=== PATIENT | female | born 1975 | race Caucasian/White ===

== ENCOUNTER 2019-12-05 08:43 | Outpatient (CLI) | payer OTHER, SELFPAY ==
--- NOTE | ~2019-12-05 | MM_ITS ---
EXAMINATION: MM screening shreyas BI w carlee HISTORY: Screening mammogram TECHNIQUE: Craniocaudal and mediolateral oblique 3-D tomosynthesis images were obtained and synthetic 2-D images were generated. CAD analysis was submitted and interpreted. COMPARISON: 11/04/2018 diagnostic left digital mammogram and complete left breast ultrasound 10/14/2018, 10/10/2017, 03/17/2016 bilateral digital screening mammogram examinations BREAST PARENCHYMAL COMPOSITION: The breasts are heterogeneously dense, which may obscure small masses . FINDINGS: Stable mild fibroglandular asymmetry. There is no evidence of suspicious mass, calcificatio n, or architectural distortion to suggest malignancy in either breast. There has been no suspicious i nterval change. IMPRESSION: 1. No mammographic evidence of malignancy. 2. Recommend routine screening mammography in one year. BI-RADS Category 2: Benign finding(s). Reviewed, dictated and finalized at location A.
== END 2019-12-05 08:44 | disposition home or self-care (01) ==
LOC: ANHIMG 08:47
PROVIDERS: PCP Family Medicine; Visit Provider Student in an Organized Health Care Education/Training Program
DX: Z12.31 Encounter for screening mammogram for malignant neoplasm of breast (principal)
CPT/HCPCS: 77063; 77067

== ENCOUNTER 2020-12-17 07:40 | Outpatient (CLI) | payer OTHER, SELFPAY ==
--- NOTE | ~2020-12-17 | MM_ITS ---
EXAMINATION: MM screening shreyas BI w carlee HISTORY: Screening TECHNIQUE: Craniocaudal and mediolateral oblique 3-D tomosynthesis images were obtained and synthetic 2-D images were generated. CAD analysis was submitted and interpreted. COMPARISON: Comparison to multiple prior studies sequentially, with oldest reviewed study dated the 03/17/2016. BREAST PARENCHYMAL COMPOSITION: The breasts are heterogeneously dense, which may obscure small masses . FINDINGS: There are developing asymmetries in the left breast which are obscured by fibroglandular ti ssue. The right breast is stable without evidence for malignancy. IMPRESSION: 1. Developing left breast asymmetries. 2. Additional mammographic views and possible breast ultrasound are recommended. BI-RADS Category 0: Incomplete: Needs additional imaging evaluation. Reviewed, dictated and finalized at location A. IMPRESSION: 1. Developing left breast asymmetries. 2. Additional mammographic views and possible breast ultrasound are recommended . BI-RADS Category 0: Incomplete: Needs additional imaging evaluation.
== END 2020-12-17 07:41 | disposition home or self-care (01) ==
LOC: ANHIMG 07:41
PROVIDERS: PCP Family Medicine; Visit Provider Student in an Organized Health Care Education/Training Program
DX: Z12.31 Encounter for screening mammogram for malignant neoplasm of breast (principal); R92.8 Other abnormal and inconclusive findings on diagnostic imaging of breast
CPT/HCPCS: 77063; 77067

== ENCOUNTER 2021-01-05 13:38 | Outpatient (CLI) | payer OTHER, SELFPAY ==
--- NOTE | ~2021-01-05 | MMUS_ITS ---
EXAMINATION: MM diagnostic shreyas LT w carlee, US breast LT complete HISTORY: Developing left breast asymmetries reported on 12/17/2020 screening mammogram examination TECHNIQUE: Additional 3-D tomosynthesis images of the left breast were performed and synthetic 2-D im ages were generated. CAD analysis was submitted and interpreted. High resolution complete left breast ultrasound was performed. COMPARISON: 06/2020 bilateral digital screening mammogram FINDINGS: MAMMOGRAPHIC FINDINGS: There is heterogeneously dense breast tissue which may obscure small masses. No suspicious mass, arch itectural distortion, malignant calcification, skin thickening or retraction of the left breast is de tected. ULTRASOUND: 12:00 6 cm from nipple: 7.5 x 6.7 x 8.2 mm sonolucency with through transmission posterior enhancemen t consistent with simple cyst 3:00 6 cm from nipple: Parallel circumscribed 5.3 x 2.9 x 4.8 mm sonolucency with through transmissio n and posterior enhancement, consistent with simple cyst No suspicious mass or shadowing is detected. IMPRESSION: 1. 2 benign left breast cysts. No mammographic evidence of malignancy 2. Routine mammographic screening is recommended. BI-RADS Category 2: Benign finding(s). Reviewed, dictated and finalized at location A. IMPRESSION: 1. 2 benign left breast cysts. No mammographic evidence of malignancy 2. Routine mammographic screening is recommended. BI-RADS Category 2: Benign finding(s).
== END 2021-01-05 13:39 | disposition home or self-care (01) ==
LOC: ANHIMG 13:40
PROVIDERS: PCP Family Medicine; Visit Provider Student in an Organized Health Care Education/Training Program
DX: R92.8 Other abnormal and inconclusive findings on diagnostic imaging of breast (principal)
CPT/HCPCS: 76641; 77061; 77065; G0279

== ENCOUNTER 2022-02-17 09:09 | Outpatient (CLI) | payer OTHER, SELFPAY ==
--- NOTE | ~2022-02-17 | MM_ITS ---
EXAMINATION: MM screening shreyas BI w carlee HISTORY: Screening TECHNIQUE: Craniocaudal and mediolateral oblique 3-D tomosynthesis images were obtained and synthetic 2-D images were generated. CAD analysis was submitted and interpreted. COMPARISON: Comparison to multiple prior studies sequentially, with oldest reviewed study dated 10/10. BREAST PARENCHYMAL COMPOSITION: The breasts are heterogeneously dense, which may obscure small masses . FINDINGS: There is no evidence of suspicious mass, calcification, or architectural distortion to sugg est malignancy in either breast. There has been no suspicious interval change. IMPRESSION: 1. No mammographic evidence of malignancy. 2. Recommend routine screening mammography in one year. BI-RADS Category 1: Negative Reviewed, dictated and finalized at location A.
== END 2022-02-17 09:10 | disposition home or self-care (01) ==
LOC: ANHIMG 09:10
PROVIDERS: PCP Family Medicine; Visit Provider Student in an Organized Health Care Education/Training Program
DX: Z12.31 Encounter for screening mammogram for malignant neoplasm of breast (principal)
CPT/HCPCS: 77063; 77067

== ENCOUNTER 2023-06-11 14:56 | Outpatient (CLI) | payer OTHER, SELFPAY ==
--- NOTE | ~2023-06-11 | MM_ITS ---
EXAMINATION: MM screening shreyas BI w carlee HISTORY: Screening TECHNIQUE: Craniocaudal and mediolateral oblique 3-D tomosynthesis images were obtained and synthetic 2-D images were generated. CAD analysis was submitted and interpreted. COMPARISON: Comparison to multiple prior studies sequentially, with oldest reviewed study dated 04/2018. BREAST PARENCHYMAL COMPOSITION: The breasts are heterogeneously dense, which may obscure small masses . FINDINGS: There is no evidence of suspicious mass, calcification, or architectural distortion to sugg est malignancy in either breast. There has been no suspicious interval change. IMPRESSION: 1. No mammographic evidence of malignancy. 2. Recommend routine screening mammography in one year. BI-RADS Category 1: Negative Reviewed, dictated and finalized at location A. MANAGER
== END 2023-06-11 14:57 | disposition home or self-care (01) ==
LOC: ANHIMG 15:01
PROVIDERS: PCP Internal Medicine; Visit Provider Registered Nurse
DX: Z12.31 Encounter for screening mammogram for malignant neoplasm of breast (principal)
CPT/HCPCS: 77063; 77067

== ENCOUNTER 2024-07-31 15:41 | Outpatient (CLI) | payer BC, OTHER, SELFPAY ==
--- NOTE | ~2024-07-31 | MM_ITS ---
EXAMINATION: MM screening shreyas BI w carlee HISTORY: Screening TECHNIQUE: Craniocaudal and mediolateral oblique 3-D tomosynthesis images were obtained and synthetic 2-D images were generated. CAD analysis was submitted and interpreted. COMPARISON: Comparison to multiple prior studies sequentially, with oldest reviewed study dated 11/04. BREAST PARENCHYMAL COMPOSITION: Dense: The breasts are heterogeneously dense, which may obscure small masses FINDINGS: There is no evidence of suspicious mass, calcification, or architectural distortion to sugg est malignancy in either breast. There has been no suspicious interval change. IMPRESSION: 1. No mammographic evidence of malignancy. 2. Recommend routine screening mammography in one year. BI-RADS Category 1: Negative Reviewed, dictated and finalized at location B.
--- OUTSIDE RECORDS SUMMARY | 2024-07-31 15:44 | XMS_ITS | Clinical Summary ---
Author Organization [facility] [employer] Address [address] [place] [address] Care Team Providers Care Dairy Farm Supervisor Name Role Phone Fabio Sifuentes MD Primary Care Provider [phone] Darlene Beck MD Unavailable [phone] Source Comments [facility],non-owned Affiliates and Associated Physician Practices is amultiple site organization consisting of ambulatory clinics and hospital sitesin [place], [place], [place] and [place]. This disclosure is being madepursuant to the Care Everywhere program and may not contain all information available regarding this patient. Last updated 18.[facility] Allergies No known active allergies Medications * Be aware that medications may not be up to date on this document. Alwaysverify current medications with the patient. escitalopram (LEXAPRO) 10 MG tablet Take 10 mg by mouth once daily Active Social History Tobacco Use Types Packs/Day Years Used Date Smoking Tobacco: Never Alcohol Use Standard Drinks/Week Comments Not Asked 0 (1 standard drink = 0.6 oz pur e alcohol) Comments No Sex and Gender Information Value Date Recorded Sex Assigned at Not on file Legal Sex Female 2:47 PM CDT Gender Identity Not on file Sexual Orientation Not on file Last Filed Vital Signs Vital Sign Reading Time Taken Comments Blood Pressure 116/72 12/24/2015 3:37 PM CDT Pulse 72 12/24/2015 3:37 PM CDT Temperature 36.9 C (98.5 F) 12/24/2015 3:37 PM CDT Respiratory Rate 18 12/24/2015 3:37 PM CDT Oxygen Saturation 97% 12/24/2015 3:37 PM CDT Inhaled Oxygen Concentration - - Weight 76.7 kg (169 lb) 12/24/2015 3:37 PM CDT Height - - Body Mass Index - - Plan of Treatment Health Maintenance Due Date Last Done Comments COLOGUARD (AGES 45-75) - COL ON CA SCREENING 1975 COLON MONITORING 1975 COLONOSCOPY - COLON CA SCREENING 1975 CT COLONOGRAPHY - COLON CA SCREENING 1975 Colorectal Cancer Screening 1975 FIT - COLON CA SCREENING 1975 FLEX SIG - COLON CA SCREENING 1975 LIPID TESTING 1975 MAMMOGRAM 1975 PAP SMEAR 1975 HIV SCREENING 12/21/1990 HEPATITIS C SCREENING 12/17/1993 DTAP/TDAP/TD VACCINES (1 - Tdap) 12/21/1994 HEPATITIS B VACCINE (1 of 3 - 19+ 3-dose series) 12/21/1994 COVID-19 VACCINE (1 - 2023-2 5 season) 2023 DEPRESSION SCREENING 04/16/2024 INFLUENZA VACCINE (Season Ended) 2024 ZOSTER VACCINE (1 of 2) 12/21/2025 HIB VACCINE Aged Out No longer eligi ble based on patient's age to complete this topic HPV VACCINE Aged Out No longer eligi ble based on patient's age to complete this topic MENINGOCOCCAL (Group B) VACC INE SHARED DECISION-MAKING Aged Out No longer eligibl e based on patient's age to complete this topic MENINGOCOCCAL GROUPS A/C/Y/W VACCINE Aged Out No longer eligible b ased on patient's age to complete this topic PNEUMOCOCCAL VACCINE Aged Out No long er eligible based on patient's age to complete this topic Insurance [facility] Care Teams Dairy Farm Supervisor Relationship Specialty Start Date End Date Fabio Sifuentes MD [address] [place] [phone] PCP - General Family Medicine 12/24/15 Darlene Beck MD [address] [place] [phone] 12/24/15
--- OUTSIDE RECORDS SUMMARY | 2024-07-31 15:44 | XMS_ITS | Encounter Summary ---
Author Organization [facility] Address [address] [place] [id number] Care Team Providers Care Tool Builder Name Role Phone Karoline Benoit MD Primary Care Provider [phone] Encounter Details Date Type Department Care Team (Late st Contact Info) Description 04/06/2023 Exinda Message Enc [facility] Family & Internal Medicine [address] [phone] [facility] Social History Tobacco Use Types Packs/Day Years Used Date Smoking Tobacco: Some Days Cigarettes Smokeless Tobacco: Never Comments:Counseled by Dr. Marisol perdomo. PHQ-2 Answer Date Recorded Patient Health Questionnaire-2 Score 0 02/02/2023 Comments No Sex and Gender Information Value Date Recorded Sex Assigned at Not on file Legal Sex Female 7:16 AM CDT Gender Identity Not on file Sexual Orientation Not on file documented as of this encounter Plan of Treatment Upcoming Encounters Date Type Department Care Team (Late st Contact Info) Description 02/16/2025 8:00 AM RAYON WINDER Office Visit [facility] Medical Group Multispecialty Care - [address] [address] [address] [place] [address] Karoline Benoit MD [address] [place] [phone] documented as of this encounter Visit Diagnoses Not on filedocumented in this encounter Additional Health Concerns Infection Onset Date Last Indicated Resolved Time COVID-19 Rule Out 12/28/2023 12/28/2023 12/28/2023 2:55 PM CDT Assessment Noted Time PHQ-9 Depression Total Score: 0 02/03/20 8:01 AM CDT documented as of this encounter Care Teams Tool Builder Relationship Specialty Start Date End Date Karoline Benoit MD [address] [id number] PCP - General INTERNAL MEDICINE 02/02/23 documented as of this encounter
--- OUTSIDE RECORDS SUMMARY | 2024-07-31 15:44 | XMS_ITS | Clinical Summary ---
Author Organization [facility] Address [address] [place] [id number] Care Team Providers Care Assistant Family Teacher Name Role Phone Karoline Benoit MD Primary Care Provider [phone] Allergies No known active allergies Medications vitamin D3, cholecalciferol, 10 mcg tablet Take 5 tablets (50 mcg total) by mouth daily. Active Cyanocobalamin (VITAMIN B12 OR) Take 5,000 mcg by mouth. Active biotin [address] MCG tablet Take 0.5 tablets (5,000 mcg total) by mouth daily. Active Multiple Vitamins-Calcium (ONE-A-DAY WOMENS FORMULA OR) Active metroNIDAZOLE (METROGEL) 1 % gelIndications:R osacea Apply topically daily. 55 g 2 4 Active omeprazole (PRILOSEC) 40 MG capsuleIndicatio ns:Gastroesophag eal reflux disease without esophagitis Take 1 capsule (40 mg total) by mouth daily. 90 capsule 3 4 Active Active Problems Problem Noted Date Diagnosed Date Globus sensation 05/15/2023 Gastroesophageal reflux dise ase, unspecified whether esophagitis present 05/15/2023 Family hx of colon cancer 05/15/2023 Family history of colonic polyps 05/15/2023 Resolved Problems Problem Noted Date Diagnosed Date Resolved Date Screening for colon cancer 05/15/2023 0 05/21/2023 Immunizations Immunization Administration Dates Next Due Influenza Adult (Generic) 01/30/2023 PFIZER COVID-19 (ORIGINAL FO RMULATION, PURPLE CAP) mRNA, LNP-S, PF, 30 MCG/0.3 ML DOSE 08/20/2020,07/23/2020 Tdap (Adacel) 02/15/2024 Family History Medical History Relation Comments Colon polyps Brother Diabetes Father COPD Maternal Grandmother Diabetes Mother COPD Paternal Grandmother Colon Cancer Paternal Grandmother Diabetes Paternal Grandmother Relation Status Comments Brother Father Maternal Grandmother Mother Paternal Grandmother Social History Tobacco Use Types Packs/Day Years Used Date Smoking Tobacco: Former Cigarettes Smokeless Tobacco: Never Tobacco Cessation:Counseling Given: Yes Comments:Counseled by Dr. Benoit. Alcohol Use Standard Drinks/Week Comments Yes 11.7 (1 standard drink = 0.6 oz pure alcohol) AUDIT-C Answer Date Recorded Q1: How often do you have a drink containing alc ohol? Monthly or less 02/15/2024 Q2: How many drinks containi ng alcohol do you have on a typical day when you are drinking? 1 or 2 02/15/2024 Q3: How often do you have si x or more drinks on one occasion? Less than monthly 02/15/2024 PHQ-2 Answer Date Recorded Patient Health Questionnaire-2 Score 0 02/15/2024 Comments No Sex and Gender Information Value Date Recorded Sex Assigned at Not on file Legal Sex Female 7:16 AM CDT Gender Identity Not on file Sexual Orientation Not on file Last Filed Vital Signs Vital Sign Reading Time Taken Comments Blood Pressure 104/72 02/15/2024 7:46 AM CDT Pulse 71 02/15/2024 7:46 AM CDT Temperature 37 C (98.6 F) 02/15/2024 7:46 AM CDT Respiratory Rate 16 02/15/2024 7:46 AM CDT Oxygen Saturation 99% 02/15/2024 7:46 AM CDT Inhaled Oxygen Concentration - - Weight 62.5 kg (137 lb 12.8 oz) 02/15/2024 7:46 AM CDT Height 160 cm (5' 3 ) 02/15/2024 7:46 AM CDT Body Mass Index 24.41 02/15/2024 7:46 AM CDT Plan of Treatment Upcoming Encounters Date Type Department Care Team (Late st Contact Info) Description 02/16/2025 8:00 AM MANAGER SUPPLY CHAIN Office Visit [facility] Medical Group Multispecialty Care - [place] [address] [address] [place] [address] Karoline Benoit MD [address] [place] [phone] Health Maintenance Due Date Last Done Comments Hepatitis B Vaccines (1 of 3 - 19+ 3-dose series) 12/21/1994 COVID-19 Vaccine (3 - 2023-2 5 season) 2023 08/20/2020, 07/23/2020 PHQ-2 (Physician [place]) 04/16/2024 02/15/2024 Annual Physical 02/14/2025 02/15/2024, 02/02/2023 Mammogram Screening 06/11/2025 06/11/2023 Colorectal Cancer Screening Colonoscopy (10 Years) 06/28/2033 06/29/2023, 12/14/2017 DTaP, Tdap and Td Vaccines ( 2 - Td or Tdap) 02/14/2034 02/15/2024 Hepatitis C Completed 04/03/2023 Meningococcal B Vaccine Aged Out No l onger eligible based on patient's age to complete this topic Meningococcal Vaccine Aged Out No kenneth jayne eligible based on patient's age to complete this topic Pneumococcal Vaccine: Pediatrics (0 to 5 Years) and At-Risk Patients (6 to 49 Years) Aged Out No longer eligible b ased on patient's age to complete this topic RSV Immunizations Under 20 Months Aged Out No longer eligible b ased on patient's age to complete this topic Procedures Procedure Name Priority Date/Time Associated Diagnosis Comments MAMMOGRAM GENERIC (SCAN ORDER) 06/11/2023 HEPATITIS C ANTIBODY Routine 04/03/2023 10:07 AM MANAGER SUPPLY CHAIN General medical exam Establishing care with new doctor, encounter for Encounter for hepatitis C screening test for low risk patient COLONOSCOPY GENERIC (SCAN ORDER) 12/14/2017 from Last 3 Months or Most Recently Relevant to Health Maintenance Results * MAMMOGRAM GENERIC (SCAN ORDER) (06/11/2023) Anatomical Region Laterality Modality Other 06/11/2023 [facility] Scanned SCANNING Final Resu lt * HEPATITIS C ANTIBODY ([facility] ONLY) (04/03/2023 10:07 AM MANAGER SUPPLY CHAIN) HEPATITIS C AB Non Reactive Non Reacti [facility] 1 Comment: HCV antibody alone does not differentiate between previously resolved infection and active infection. Equivocal and Reactive HCV antibody results should be followed up with an HCV RNA test to support the diagnosis of active HCV infection. 04/03/2023 10:0 7 AM MANAGER SUPPLY CHAIN 04/03/2023 Narrative [facility] - 04/04/2023 6:11 AM MANAGER SUPPLY CHAIN Performed at: 01 - [facility] [id number] Biologist Aide: Edmar Melo PhD, Phone: [phone] Karoline Benoit MD LABORATORY Final Result [facility] [address] [id number] [facility] 1 * COLONOSCOPY GENERIC (12/14/2017) 12/14/2017 [facility] Scanned SCANNING Final Resu lt from Last 3 Months or Most Recently Relevant to Health Maintenance Insurance [address] [facility] [facility] Care Teams Assistant Family Teacher Relationship Specialty Start Date End Date Karoline Benoit MD [address] [address] PCP - General INTERNAL MEDICINE 02/02/23
== END 2024-07-31 15:42 | disposition home or self-care (01) ==
PROVIDERS: PCP Internal Medicine; Visit Provider Internal Medicine
DX: Z12.31 Encounter for screening mammogram for malignant neoplasm of breast (principal)
CPT/HCPCS: 77063; 77067